=== PATIENT | female | born 1955 | race Caucasian/White ===

== ENCOUNTER 2021-12-17 11:36 | Emergency (ER) | payer BC ==
[~2021-12-17] VITALS: Ht 165.1 cm; Wt 64.6 kg
[2021-12-17 11:36] VITALS: BP 109/55
[2021-12-17] MEDS ORDERED: ZOLP10TA2 (11:48)
[2021-12-17] MEDS ORDERED: BUTA-198 (11:48)
[2021-12-17] MEDS ORDERED: HYDR50TAB (11:48)
[2021-12-17] MEDS ORDERED: ALPR0.5T3 (11:48)
[2021-12-17] MEDS ORDERED: LEVO75TA4 (11:48)
[2021-12-17 13:15] LABS: BASO % 0.4 % (0.0-1.0); EOS # 0.3 10^3/uL (0.0-0.5); EOS % 3.5 % (0.0-3.0); HEMATOCRIT 35.7 % (36.0-47.0); HEMOGLOBIN 11.4 g/dl (12.0-15.5); LYMPH # 1.6 10^3/uL (1.5-5.0); LYMPH % 21.3 % (24.0-44.0); MEAN CORPUSCULAR HGB CONC 31.9 g/dl (32.0-36.5); MEAN CORPUSCULAR VOLUME 90.8 fl (80.0-96.0); MONO # 0.8 10^3/uL (0.0-0.8); MONO % 10.8 % (2.0-8.0); NEUTROPHILS # 4.9 10^3/uL (1.5-8.5); NEUTROPHILS % 63.6 % (36.0-66.0); PLATELET COUNT, AUTOMATED 367 10^3/uL (150-450); RED BLOOD COUNT 3.93 10^6/uL (4.00-5.40); WHITE BLOOD COUNT 7.6 10^3/uL (4.0-10.0)
[2021-12-17 13:40] LABS: ALBUMIN 3.6 GM/DL (3.2-5.2); ALT/SGPT 21 U/L (12-78); BILIRUBIN,DIRECT < 0.1 MG/DL (0.0-0.2); BILIRUBIN,TOTAL 0.3 MG/DL (0.2-1.0); LIPASE 83 U/L (73-393); TOTAL PROTEIN 6.9 GM/DL (6.4-8.2)
[2021-12-17] MEDS ORDERED: TAMSULOSIN 0.4 MG CAP PO ONE (13:40)
[2021-12-17] MEDS ORDERED: OXYC1TAB23 PO (13:43)
[2021-12-17] MEDS ORDERED: FLOM0.4C39 PO (13:43)
[2021-12-17] MEDS ORDERED: ONDA4TAB6 PO (13:43)
[2021-12-17] MEDS ORDERED: KETO10TAB PO (13:43)
== END 2021-12-17 14:01 | disposition home or self-care (01) ==
LOC: M ED 11:36
DX: N20.1 Calculus of ureter (principal); Z87.442 Personal history of urinary calculi; Z79.890 Hormone replacement therapy; Z79.899 Other long term (current) drug therapy; Z88.6 Allergy status to analgesic agent; Z88.5 Allergy status to narcotic agent